=== PATIENT | male | born 1990 | race Caucasian/White ===

== ENCOUNTER 2017-04-01 22:11 | Emergency (ER) | payer MEDICAID, OTHER ==
[2017-04-01] MEDS: CYCLOBENZAPRINE 10 MG TAB PO (22:36)
[2017-04-01] MEDS: HYDROCODONE/APAP (5/325) TAB PO (22:36)
== END 2017-04-01 22:48 | disposition home or self-care (01) ==
LOC: FTE 22:11
DX: S39.012A Strain of muscle, fascia and tendon of lower back, initial encounter (principal); S16.1XXA Strain of muscle, fascia and tendon at neck level, initial encounter; V89.2XXA Person injured in unspecified motor-vehicle accident, traffic, initial encounter
CPT/HCPCS: 99284; Z7502